=== PATIENT | female | born 1965 | race Caucasian/White ===

== ENCOUNTER → 2025-02-20 | Day surgery (SDC) | payer MEDICAID ==
[~2025-02-20] VITALS: Ht 170.2 cm; Wt 89.4 kg
[~2025-02-20] MED LIST: ACETAMINOPHEN WITH CODEINE 300/30MG TABLET PO SCH; BUPIVACAINE HCL/PF 0.5% (5MG/ML) 10ML ONE; CEFAZOLIN SODIUM 1000MG/VIAL ONE; EPHEDRINE SULFATE 50MG/ML VIAL ONE; FAMOTIDINE 20MG/2ML VIAL IV ONE; FENTANYL CITRATE/PF 50MCG/ML 2ML VIAL ONE; GLYCOPYRROLATE 0.2 MG/ML 2ML VIAL ONE; HYDROMORPHONE HCL/PF 1MG/ML INJ IV PRN; HYDROMORPHONE HCL/PF 1MG/ML INJ ONE; METOCLOPRAMIDE HCL 10MG/2ML VIAL ONE; MIDAZOLAM HCL 2 MG/2 ML VIAL ONE; NEOSTIGMINE METHYLSULFATE 1MG/ML 10 ML VIAL ONE; ONDANSETRON HCL 4MG/2ML INJ IV PRN; ONDANSETRON HCL 4MG/2ML INJ ONE; PROPOFOL 200MG/20ML VIAL IV ONE; ROCURONIUM BROMIDE 10MG/ML VIAL 5ML IV ONE; SKIN ADHESIVE 0.7 GM EA TOP ONE
[2025-02-20] MEDS: SODIUM CHLORIDE 0.9% 1,000 ML IV SCH (07:22)
== END | disposition home or self-care (01) ==
LOC: OR 06:20
PROVIDERS: ATTEND Surgery
DX: K80.10 Calculus of gallbladder with chronic cholecystitis without obstruction (principal); E11.9 Type 2 diabetes mellitus without complications; Z79.84 Long term (current) use of oral hypoglycemic drugs; Z79.899 Other long term (current) drug therapy; Z98.890 Other specified postprocedural states
CPT/HCPCS: 47562; 82962; 88304; J3010; J0665; J0690; J3490 ×3; J1308; J2765; J2250; J2405; J2704; J1171; J7030; J2710